=== PATIENT | male | born 1950 | race Hispanic/Latino ===

== ENCOUNTER 2017-02-21 23:59 | Emergency (ER) | payer MEDICAID, MEDICARE ==
[2017-02-22 00:08] VITALS: BMI 22.4
[2017-02-22 00:09] VITALS: TEMP 98.2
--- NOTE | 2017-02-22 00:52 | ED PDOC ---
Arrival/HPI - General Chief Complaint: Headache Time Seen by Provider: 02/22/17 00:17 Historian: Patient - History of Present Illness Narrative History of Present Illness (Text): 02/22/17 00:48 66 year old male presents to the emergency department complaining of right frontal headache that began this morning. Patient describes the headache as slow in onset, not sudden, not the worst headache of his life. He denies nausea , vomiting, photophobia, fever, chills, or neck pain. No other complaints. Patient states he has a history of depression and reports compliance with his medication. He denies suicidal ideation or homicidal ideation. Symptom Onset: Gradual Symptom Course: Unchanged Activities at Onset: Rest Past Medical History - Provider Review Nursing Documentation Reviewed: Yes - Infectious Disease Hx of Infectious Diseases: None - Cardiac Hx Cardiac Disorders: No Hx Hypertension: Yes - Pulmonary Hx Respiratory Disorders: No Hx Tuberculosis: No - Neurological Hx Neurological Disorder: No HX Cerebrovascular Accident: No Hx Seizures: No - HEENT Hx HEENT Disorder: Yes (tongue CA) - Renal Hx Renal Disorder: No Hx Dialysis: No Hx Kidney Stones: No Hx Neurogenic Bladder: No Hx Pyelonephritis: No Hx Renal Cancer: No Hx Renal Failure: No - Endocrine/Metabolic Hx Endocrine Disorders: No - Hematological/Oncological Hx Blood Disorders: No Hx Cancer: Yes - Integumentary Hx Dermatological Disorder: No - Musculoskeletal/Rheumatological Hx Musculoskeletal Disorders: No Hx Falls: No - Gastrointestinal Hx Gastritis: Yes - Genitourinary/Gynecological Hx Genitourinary Disorders: No Hx Sexually Transmitted Diseases: No - Psychiatric Hx Anxiety: Yes Hx Depression: Yes Hx Physical Abuse: No Hx Sexual Abuse: No Hx Substance Use: No - Surgical History Other/Comment: polypectomy - Anesthesia Hx Anesthesia: Yes Hx Anesthesia Reactions: No Hx Malignant Hyperthermia: No - Suicidal Assessment Feels Threatened In Home Enviroment: No Family/Social History - Physician Review Nursing Documentation Reviewed: Yes Family/Social History: Unknown Family HX Smoking Status: Never Smoked Hx Alcohol Use: No Hx Substance Use: No Allergies/Home Meds Allergies/Adverse Reactions: Allergies No Known Allergies Allergy (Verified 01/24/15 13:49) Home Medications: Home Meds Medication Instructions Recorded Confirmed Atorvastatin 20 mg PO HS 09/16/14 01/24/15 Topiramate 50 mg PO DAILY 09/16/14 01/24/15 Lexapro 01/24/15 01/24/15 Patient Own Med 01/24/15 01/24/15 Physical Exam - Physical Exam Narrative Physical Exam (Text): 02/22/17 00:50 - Review of Systems Constitutional: Normal. absent: Fatigue, Weight Change, Fevers, Chills Eyes: Normal absent: photophobia ENT: Normal Respiratory: Normal absent: SOB, Cough, Sputum Cardiovascular: Normal absent: Chest pain, Palpitations, Syncope Gastrointestinal: Normal absent: Abdominal pain, Diarrhea, Nausea, Vomiting Genitourinary: Normal. absent: Dysuria, Frequency, Hematuria Musculoskeletal: Normal. absent: Arthralgias, Back Pain, Neck Pain Skin: Normal Neurological: Headache absent: Focal Weakness Endocrine: Normal Hemo/Lymphatic: Normal Psychiatric: Normal absent: no suicidal ideation, no homicidal ideation - Physical exam Patient appears age appropriate, speaking full sentences without difficulty - Systems Exam Head: Present: Atraumatic, Normocephalic Pupils: Present: PERRL Extraocular Muscles: Present: EOMI Conjunctiva: Present: Normal Mouth: Present: Moist Mucous Membranes Neck: Present: Normal Range of Motion. No: MIDLINE TENDERNESS, Paraspinal Tenderness Respiratory/Chest: Present: Clear to Auscultation, Good Air Exchange. No: Respiratory Distress, Accessory Muscle Use, Tachypneic Cardiovascular: Present: Regular Rate and Rhythm, Normal S1, S2, Peripheral Pulses Present. No: Murmurs Abdomen: Present: Normal Bowel Sounds, No: Tenderness, Peritoneal Signs, Rebound, Guarding, Distention Back: Present: Normal Inspection. No: Midline Tenderness, Paraspinal Tenderness Upper Extremity: Present: Normal Inspection. No: Cyanosis, Edema Lower Extremity: Present: Normal Inspection. No: Edema Neurological: Present: GCS=15, Speech Normal, cranial nerves II through XII fully intact with no cerebellar abnormality, neuro-sensory fully intact. No focal neurological deficits. Skin: Present: Warm, Dry, Normal Color. No: Rashes Lymphatic: Present: OX3, NI, NC Psychiatric: Present: Alert, Oriented x 3, Normal Insight, Normal Concentration Vital Signs Reviewed: Yes Vital Signs Temp Pulse Resp BP Pulse Ox 02/22/17 00:09 98.2 F 83 18 148/92 H 98 Temperature: Afebrile Blood Pressure: Normal Pulse: Regular Respiratory Rate: Normal Appearance: Positive for: Well-Appearing, Non-Toxic, Comfortable Pain Distress: None Mental Status: Positive for: Alert and Oriented X 3 Medical Decision Making ED Course and Treatment: 02/22/17 00:52 Impression: 66 year old male complaining of headache. Physical exam unremarkable. Plan: --Toradol -- Reassess and disposition Progress Notes: Based on history in physical exam, no suspicion of SAH. Toradol ordered and will reevaluate. 02/22/17 02:32 on reeval, pt states his pain has greatly decreased ambulating with steady gait and no focal neurological deficits states he feels comfortable being dc'd home with outpatient f/u Pt states he understands to return to the ER right away for new or worsening symptoms or for inability to f/u with PMD or specialist as instructed. Patient states that he fully agrees with and understands discharge instructions. States that he agrees with the plan and disposition. Verbalized and repeated discharge instructions and plan. I have given the patient opportunity to ask any additional questions. - Medication Orders Current Medication Orders: Discontinued Medications Ketorolac Tromethamine (Toradol) 30 mg IM STAT STA Stop: 02/22/17 00:47 Last Admin: 02/22/17 00:54 Dose: 30 MG IM Administration Charges Document 02/22/17 00:54 RD (Rec: 02/22/17 00:54 RD [id number]) Injection Site MAR Injection Site Left Deltoid Charges for Administration # of IM Administrations 1 - Scribe Statement The provider has reviewed the documentation as recorded by the Scribe Soheila Tobias Provider Scribe Attestation: All medical record entries made by the Scribe were at my direction and personally dictated by me. I have reviewed the chart and agree that the record accurately reflects my personal performance of the history, physical exam, medical decision making, and the department course for this patient. I have also personally directed, reviewed, and agree with the discharge instructions and disposition. Disposition/Present on Arrival - Present on Arrival Any Indicators Present on Arrival: No History of DVT/PE: No History of Uncontrolled Diabetes: No Urinary Catheter: No History of Decub. Ulcer: No History Surgical Site Infection Following: None - Disposition Have Diagnosis and Disposition been Completed?: Yes Diagnosis: Headache Disposition: HOME/ ROUTINE Disposition Time: 02:46 Patient Plan: Discharge Condition: GOOD Discharge Instructions (ExitCare): General Headache (ED) Additional Instructions: PLEASE RETURN TO THE EMERGENCY DEPARTMENT FOR NEW OR WORSENING SYMPTOMS. RETURN RIGHT AWAY IF YOU CANNOT FOLLOW UP WITH YOUR PRIMARY CARE DOCTOR, CLINIC, OR SPECIALIST IN 1-2 DAYS. Prescriptions: Ibuprofen [Motrin] 600 mg PO Q8 PRN #12 tab PRN Reason: Pain, Moderate (4-7) Referrals: Sadiq Vargas MD [Staff Provider] - Follow up with primary Noble Vargas MD [Staff Provider] - Follow up with primary
[2017-02-22 03:19] VITALS: BP 135/86; PULSE 79; RESP 17; O2SAT 100
== END 2017-02-22 03:19 | disposition home or self-care (01) ==
LOC: ED 23:59
DX: R51 Headache (principal); I10 Essential (primary) hypertension
CPT/HCPCS: 96372; 99285; J1885

== ENCOUNTER 2018-03-19 11:31 | Inpatient (IN) | payer MEDICARE, MEDICAID ==
--- NOTE | 2018-03-19 11:51 | ED PDOC ---
Arrival/HPI - General Time Seen by Provider: 03/19/18 11:36 Historian: Patient - History of Present Illness Narrative History of Present Illness (Text): 03/19/18 11:48 67yo male with PMHx of Depression bib EMS for depression. Patient states while he was at [facility] mental health this morning, they noticed that he was agitated and depressed and he voiced that he wants to kill him. States he don't want to harm himself, but just that life is difficult for him right now. He denies homicidal ideation, hallucination, any somatic complaint. Past Medical History - Provider Review Nursing Documentation Reviewed: Yes - Infectious Disease Hx of Infectious Diseases: None - Cardiac Hx Cardiac Disorders: No Hx Hypertension: Yes - Pulmonary Hx Respiratory Disorders: No Hx Tuberculosis: No - Neurological Hx Neurological Disorder: No HX Cerebrovascular Accident: No Hx Seizures: No - HEENT Hx HEENT Disorder: Yes (tongue CA) - Renal Hx Renal Disorder: No Hx Dialysis: No Hx Kidney Stones: No Hx Neurogenic Bladder: No Hx Pyelonephritis: No Hx Renal Cancer: No Hx Renal Failure: No - Endocrine/Metabolic Hx Endocrine Disorders: No - Hematological/Oncological Hx Blood Disorders: No Hx Cancer: Yes - Integumentary Hx Dermatological Disorder: No - Musculoskeletal/Rheumatological Hx Musculoskeletal Disorders: No Hx Falls: No - Gastrointestinal Hx Gastritis: Yes - Genitourinary/Gynecological Hx Genitourinary Disorders: No Hx Sexually Transmitted Diseases: No - Psychiatric Hx Anxiety: Yes Hx Depression: Yes Hx Physical Abuse: No Hx Sexual Abuse: No Hx Substance Use: No - Surgical History Other/Comment: polypectomy - Anesthesia Hx Anesthesia: Yes Hx Anesthesia Reactions: No Hx Malignant Hyperthermia: No - Suicidal Assessment Feels Threatened In Home Enviroment: No Family/Social History - Physician Review Nursing Documentation Reviewed: Yes Family/Social History: Unknown Family HX Smoking Status: Never Smoked Hx Alcohol Use: No Hx Substance Use: No Allergies/Home Meds Allergies/Adverse Reactions: Allergies No Known Allergies Allergy (Verified 03/19/18 12:07) Home Medications: Home Meds Medication Instructions Recorded Confirmed Atorvastatin 20 mg PO HS 09/16/14 03/19/18 Risperidone [Risperdal] 2 mg PO DAILY 03/19/18 03/19/18 Review of Systems - Physician Review All systems were reviewed & negative as marked: Yes - Review of Systems Constitutional: Normal Eyes: Normal ENT: Normal Respiratory: Normal Cardiovascular: Normal Gastrointestinal: Normal Genitourinary Male: Normal Musculoskeletal: Normal Skin: Normal Neurological: Normal Endocrine: Normal Hemo/Lymphatic: Normal Psychiatric: Depression Physical Exam Vital Signs Reviewed: Yes Vital Signs Temp Pulse Resp BP Pulse Ox 03/19/18 15:54 18 98 03/19/18 15:51 98.6 F 87 18 118/78 99 03/19/18 12:12 99.1 F 88 18 116/75 96 Temperature: Afebrile Blood Pressure: Normal Pulse: Regular Respiratory Rate: Normal Appearance: Positive for: Well-Appearing, Non-Toxic, Comfortable Pain Distress: None Mental Status: Positive for: Alert and Oriented X 3 - Systems Exam Head: Present: Atraumatic, Normocephalic Pupils: Present: PERRL Extroacular Muscles: Present: EOMI Conjunctiva: Present: Normal Mouth: Present: Moist Mucous Membranes Neck: Present: Normal Range of Motion Respiratory/Chest: Present: Clear to Auscultation, Good Air Exchange. No: Respiratory Distress, Accessory Muscle Use Cardiovascular: Present: Regular Rate and Rhythm, Normal S1, S2. No: Murmurs Abdomen: No: Tenderness, Distention, Peritoneal Signs Back: Present: Normal Inspection Upper Extremity: Present: Normal Inspection. No: Cyanosis, Edema Lower Extremity: Present: Normal Inspection. No: Edema Neurological: Present: GCS=15, CN II-XII Intact, Speech Normal Skin: Present: Warm, Dry, Normal Color. No: Rashes Psychiatric: Present: Alert, Oriented x 3, Normal Insight, Normal Concentration , Depressed Mood Medical Decision Making ED Course and Treatment: 03/19/18 19:17 PT was seen in ED for stated history. He was medically cleared in ED and was seen in ED by PES screener Lauri. She DC with Dr. Davila and pt was admitted for Major depression under Dr. Davila's service. EKG Sinus rhythm with fusion comples. RBBB @ 92bpm. comparable to old EKG CXR NAD - Lab Interpretations Lab Results: 03/19/18 12:00 03/19/18 12:00 Lab Results 03/19/18 12:00: Alcohol, Quantitative < 10 03/19/18 12:00: Salicylates < 1 L, Acetaminophen < 10.0 L 03/19/18 12:00: Sodium 143, Potassium 3.7, Chloride 108 H, Carbon Dioxide 22, Anion Gap 16, BUN 21, Creatinine 1.3, Est GFR ( Amer) > 60, Est GFR (Non- Af Amer) 55, Random Glucose 118 H, Calcium 9.6, Total Bilirubin 0.7, AST 33, ALT 34, Alkaline Phosphatase 67, Total Protein 7.3, Albumin 4.4, Globulin 2.9, Albumin/Globulin Ratio 1.5 03/19/18 12:00: WBC 8.2 D, RBC 5.52, Hgb 16.7, Hct 47.4, MCV 85.9, MCH 30.3, MCHC 35.2, RDW 12.9, Plt Count 157, MPV 12.1 H, Gran % 81.1 H, Lymph % (Auto) 9.4 L, [place] % (Auto) 9.0 H, Eos % (Auto) 0.4 L, Baso % (Auto) 0.1, Gran # 6.61 H , Lymph # (Auto) 0.8 L, [place] # (Auto) 0.7 H, Eos # (Auto) 0.0, Baso # (Auto) 0.01 03/19/18 11:57: Urine Opiates Screen Negative, Urine Methadone Screen Negative, Ur Barbiturates Screen Negative, Ur Phencyclidine Scrn Negative, Ur Amphetamines Screen Negative, U Benzodiazepines Scrn Negative, U Oth Cocaine Metabols Negative, U Cannabinoids Screen Negative 03/19/18 11:57: Urine Color Yellow, Urine Appearance Clear, Urine pH 5.5, Ur Specific [place] >= 1.030, Urine Protein Negative, Urine Glucose (UA) Negative, Urine Ketones Trace H, Urine Blood Small H, Urine Nitrate Negative, Urine Bilirubin Negative, Urine Urobilinogen 0.2, Ur Leukocyte Esterase Negative, Urine RBC 5 - 10, Urine WBC 0 - 2, Ur Epithelial Cells None, Urine Bacteria Few , Urine Other Fiber - RAD Interpretation Radiology Orders: 03/19/18 11:56 CHEST PORTABLE [RAD] Stat - Medication Orders Current Medication Orders: Acetaminophen (Tylenol 325mg Tab) 650 mg PO Q6H PRN PRN Reason: Pain, moderate (4-7) Al Hydrox/Mg Hydrox/Simethicone (Maalox Plus 30 Ml) 30 ml PO DAILY PRN PRN Reason: Indigestion / Heartburn Hydroxyzine Pamoate (Vistaril) 25 mg PO TID PRN; Protocol PRN Reason: Anxiety Lorazepam (Ativan) 1 mg IM Q8 PRN; Protocol PRN Reason: Anxiety Magnesium Hydroxide (Milk Of Magnesia) 30 ml PO DAILY PRN PRN Reason: Constipation Mirtazapine (Remeron) 15 mg PO HS PRN PRN Reason: Insomnia Risperidone (Risperdal Tab) 1 mg PO AMHS JOVANY PRN Reason: Protocol Disposition/Present on Arrival - Present on Arrival Any Indicators Present on Arrival: No History of DVT/PE: No History of Uncontrolled Diabetes: No Urinary Catheter: No History Surgical Site Infection Following: None - Disposition Have Diagnosis and Disposition been Completed?: Yes Diagnosis: Moderate major depression, single episode, Major depression Disposition: HOSPITALIZED Disposition Time: 16:25 Patient Plan: Admission Patient Problems: Current Active Problems Problem Status Onset Major depression Acute Moderate major depression, single episode Acute Condition: FAIR
[2018-03-19 11:56] VITALS: BMI 22.1
[2018-03-19 12:07] LABS: PH,URINE 5.5 (4.7-8.0); URINE BILIRUBIN NEGATIVE (NEGATIVE); URINE BLOOD SMALL (NEGATIVE); URINE GLUCOSE (UA) NEGATIVE (NEGATIVE); URINE LEUKOCYTE ESTERASE NEGATIVE Leu/uL (NEGATIVE); URINE PROTEIN NEGATIVE mg/dL (<30 mg/dL); URINE UROBILINOGEN 0.2 E.U./dL (<1 E.U./dL)
[2018-03-19 12:12] LABS: URINE APPEARANCE CLEAR (CLEAR); URINE COLOR YELLOW (YELLOW)
[2018-03-19 12:18] LABS: BASO # 0.01 K/mm3 (0.0-2.0); BASO % 0.1 % (0.0-3.0); EOS % 0.4 % (1.5-5.0); GRAN # 6.61 (1.4-6.5); GRAN % 81.1 % (50.0-68.0); HEMOGLOBIN 16.7 g/dL (14.0-18.0); LYMPH # 0.8 (1.2-3.4); LYMPH % 9.4 % (22.0-35.0); MEAN CELL VOLUME 85.9 fl (80.0-105.0); MEAN CORPUSCULAR HEMOGLOBIN 30.3 pg (25.0-35.0); MEAN CORPUSCULAR HGB CONC 35.2 g/dl (31.0-37.0); MEAN PLATELET VOLUME 12.1 fl (7.0-11.0); MONO # 0.7 (0.1-0.6); RBC 5.52 10^6/uL (3.5-6.1); RED CELL DISTRIBUTION WIDTH 12.9 % (11.5-14.5); WHITE BLOOD COUNT 8.2 10^3/ul (4.5-11.0)
[2018-03-19 12:20] LABS: URINE BACTERIA FEW (NEG); URINE WBC 0 - 2 /hpf (0-6)
[2018-03-19 12:30] LABS: ALB/GLOB RATIO 1.5 (1.1-1.8); ALBUMIN 4.4 g/dL (3.0-4.8); ALT/SGPT 34 U/L (7-56); AST/SGOT 33 U/L (17-59); BLOOD UREA NITROGEN 21 mg/dL (7-21); CALCIUM 9.6 mg/dL (8.4-10.5); GFR AFRICAN-AMERICAN > 60; GFR NON-AFRICAN AMERICAN 55
[2018-03-19 12:31] LABS: ACETAMINOPHEN < 10.0 ug/ml (10.0-20.0); SALICYLATE < 1 mg/dL (2.0-20.0)
[2018-03-19 12:38] LABS: BARBITURATES, UR NEGATIVE (NEGATIVE); BENZODIAZEPINES, UR NEGATIVE (NEGATIVE); OPIATES, UR NEGATIVE (NEGATIVE); PHENCYCLIDINE, UR NEGATIVE (NEGATIVE)
--- NOTE | 2018-03-19 13:12 | RAD ---
HISTORY: admission COMPARISON: 03/01/2016. FINDINGS: LUNGS: The lungs are well inflated and clear. PLEURA: No significant pleural effusion identified, no pneumothorax apparent. CARDIOVASCULAR: Normal. OSSEOUS STRUCTURES: No significant abnormalities. VISUALIZED UPPER ABDOMEN: Normal. OTHER FINDINGS: None. IMPRESSION: No active pulmonary disease.
[2018-03-19] MEDS ORDERED: Magnesium Hydroxide Susp 30 ml UD PO PRN (17:03)
[2018-03-19] MEDS ORDERED: Alum-Mag Hydrox-Simethicone Susp (30 mL) PO PRN (17:03)
--- NOTE | 2018-03-19 21:11 | CARD ---
APPROVED REPORT EKG Measurement Heart [id number] <Conclusion> Sinus rhythm with fusion complexes Right bundle branch block Abnormal ECG
[2018-03-20 06:31] VITALS: O2SAT 100
--- NOTE | 2018-03-20 08:18 | PCM.BM ---
<Radha Howard - Last Filed: 03/20/18 08:15> Treatment Plan Problems - Problems identified on initial assessmt high risk:suicide Date Initiated: 03/20/18 Time Initiated: 08:16 Assessment reference: NA Status: Active hopelesness/helplessness Date Initiated: 03/20/18 Time Initiated: 08:17 Assessment reference: NA Status: Active feeling of worthlessness Date Initiated: 03/20/18 Time Initiated: 08:18 Status: Active ineffective coping Date Initiated: 03/20/18 Time Initiated: 08:19 Assessment reference: NA Status: Active social isolation Date Initiated: 03/20/18 Time Initiated: 08:22 Assessment reference: NA Status: Active Treatment assets and liabiliti Patient Assests: adapts well, cooperative, educated, ADL independent, negotiates basic needs Patient Liabilities: live alone, poor support system - Milieu Protocol Maintain good personal hygiene: every shift Encourage regular showers, every shift Remind patient to perform daily oral care, every shift Assist patient to perform ADL's Conduct patient checks and document Observation sheet: Q15 minutes Maintain personal safety: every shift Educate patient to report safety concerns to staff, every shift Monitor environment for contraband/sharps Medication safety: Monitor for expected outcome, potential side effects: every shift, Assess barriers to learning: every shift, Assess readiness for medication education: every shift Discharge/Continuing Care - Education Needs Education Needs: Patient Medication, Patient Diagnosis/Disease Process, Patient Coping Skills, Patient Community resources, Patient Personal Hygiene/Grooming - Discharge Discharge Criteria: Tolerates medication w/o severe side effects, Free of Suicidal thoughts, Free of Homicidal thoughts, Normal sleep pattern, Ability to care for self <Lola Mccarthy - Last Filed: 03/20/18 15:20> - Diagnosis (1) Schizoaffective disorder Status: Acute Interventions: 03/20/18 15:18 Psychoeducation supportive therapy Psychopharmacology/adjustment of medications as needed/ monitoring possible side effects Evaluate pt on daily basis Compliance with medications and follow up appointments Long acting medication if pt is noncompliant with pill form Suicide and homicide risk assessment and prevention, coping strategies, safety plan Relapse prevention Reduction of symptoms Improve functional status Possible assertive community treatment Cognitive behavioral therapy Family involvement Possible social skill training as outpatient (2) MT (generalized anxiety disorder) Status: Acute Interventions: 03/20/18 15:20 Psychoeducation Psychopharmacology/adjustment of medications as needed/ monitoring possible side effects Evaluate pt on daily basis Discussion of importance of being compliant with medications and follow up appointments Suicide and homicide risk assessment and prevention, coping strategies, safety plan Reduction of symptoms Relaxation techniques and breathing exercises Improve functional status Family involvement Cognitive behavioral therapy as outpatient <Zaina Sweeney Y - Last Filed: 03/20/18 17:51> Family Contact Family involvement: No known Family/SO
[2018-03-20 08:28] LABS: HDL CHOLESTEROL 44 mg/dL (29-60)
[2018-03-20 08:38] LABS: LDL CHOLESTEROL 117 mg/dL (0-129)
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
[2018-03-21 07:14] VITALS: RESP 20
--- NOTE | 2018-03-21 09:42 | PCM.PYCHPN ---
Psychiatric Progress Note - Psychiatric Progress Note Patient seen today, length of contact: 25 min Problems Identified/Issues Discussed: I reviewed assessment and recent notes. Patient was interviewed at bedside. Alert and oriented x3. He tells me that he feels improved and would like to be discharged soon. Sleeping well and denies side effects, discomfort or pain. Affect appears constricted, withdrawn and a little anxious. There have been no behavioral issues however patient has been guarded and withdrawn on the unit. Admitted to intermittent suicidal ideation with no plan to staff members yesterday though denied having these thoughts to me today. There were no behavioral issues overnight Diagnostic Results: r/o schizoaffective disorder Medication Change: No Medical Record Reviewed: Yes Mental Status Examination - Cognitive Function Orientation: Person, Place Attention: WNL Concentration: Poor - Mood Mood: Depressed (better), Anxious - Affect Affect: Constricted, Flat - Speech Speech: Appropriate - Formal Thought Process Formal Thought Process: Delusions (None elicited today), Paranoia (guarded) - Suicidal Ideation Suicidal Ideation: No - Homicidal Ideation Homicidal Ideation: No Goal/Treatment Plan - Goal/Treatment Plan Progress Toward Problem(s) and Goals/Treatment Plan: * c/w current tx and plan * No new weekend labs thus far * Vitals reviewed and noted below: 03/20/18 03/21/18 06:30 07:13 Temperature 97.9 F 97.9 F Pulse Rate 77 75 Respiratory 19 20 Rate Blood Pressure 141/92 H 124/82
--- NOTE | 2018-03-22 09:51 | PCM.PYCHPN ---
Psychiatric Progress Note - Psychiatric Progress Note Patient seen today, length of contact: 25 min Patient Chief Complaint: Feels neither hopeful or hopeless Problems Identified/Issues Discussed: I reviewed assessment and recent notes. Patient was interviewed at bedside. Alert and oriented x3. He tells me that he feels improved and would like to be discharged soon, willing to wait until Friday to speak with his primary psychiatrist. Patient feels that the medications are "helping a little". Patient feels neither hopeful or hopeless. His affect is constricted and withdrawn. Appears a little anxious today. Patient continues to deny having any thoughts to harm himself though admitted to intermittent suicidal ideation (with no plan) to staff members on Friday Sleeping well and denies side effects, discomfort or pain. There have been no behavioral issues over the weekend however patient has been guarded and quiet on the unit. Diagnostic Results: r/o schizoaffective disorder Medication Change: No Medical Record Reviewed: Yes Mental Status Examination - Cognitive Function Orientation: Person, Place, Situation Attention: WNL Concentration: Poor - Mood Mood: Depressed (better neither hopeful or hopeless), Anxious - Affect Affect: Constricted, Flat - Speech Speech: Appropriate - Formal Thought Process Formal Thought Process: Delusions (None elicited this weekend however patient is guarded), Paranoia (guarded) - Suicidal Ideation Suicidal Ideation: No - Homicidal Ideation Homicidal Ideation: No Goal/Treatment Plan - Goal/Treatment Plan Progress Toward Problem(s) and Goals/Treatment Plan: * c/w current tx and plan * No new weekend labs * Vitals reviewed and noted below: Selected Entries 03/22/18 07:47 Temperature 96.8 F L Pulse Rate 72 Respiratory 20 Rate Blood Pressure 119/79
--- NOTE | 2018-03-23 15:10 | PCM.PYCHPN ---
Psychiatric Progress Note - Psychiatric Progress Note Patient seen today, length of contact: 30 minutes Patient Chief Complaint: "I M anxious to go home, and the same time I'm afraid to lose my home health aide" Problems Identified/Issues Discussed: Suicide/ homicide prevention, past psychiatric h/o, current psychiatric symptoms , medical problems, risk/benefits and alternatives of medications, medications compliance, coping strategies, substance abuse h/o, relapse prevention, importance of follow up with psychiatrist and therapist, discharge plan. Medical Problems: patient reported being healthy Diagnostic Results: 03/19/18 12:00 03/19/18 12:00 Lab Results 03/20/18 08:00: RPR Nonreactive 03/20/18 08:00: Triglycerides 98, Cholesterol 204 H, LDL Cholesterol Direct 117 , HDL Cholesterol 44 03/19/18 12:00: Alcohol, Quantitative < 10 03/19/18 12:00: Salicylates < 1 L, Acetaminophen < 10.0 L 03/19/18 12:00: Sodium 143, Potassium 3.7, Chloride 108 H, Carbon Dioxide 22, Anion Gap 16, BUN 21, Creatinine 1.3, Est GFR ( Amer) > 60, Est GFR (Non- Af Amer) 55, Random Glucose 118 H, Calcium 9.6, Total Bilirubin 0.7, AST 33, ALT 34, Alkaline Phosphatase 67, Total Protein 7.3, Albumin 4.4, Globulin 2.9, Albumin/Globulin Ratio 1.5 03/19/18 12:00: WBC 8.2 D, RBC 5.52, Hgb 16.7, Hct 47.4, MCV 85.9, MCH 30.3, MCHC 35.2, RDW 12.9, Plt Count 157, MPV 12.1 H, Gran % 81.1 H, Lymph % (Auto) 9.4 L, [place] % (Auto) 9.0 H, Eos % (Auto) 0.4 L, Baso % (Auto) 0.1, Gran # 6.61 H , Lymph # (Auto) 0.8 L, [place] # (Auto) 0.7 H, Eos # (Auto) 0.0, Baso # (Auto) 0.01 03/19/18 11:57: Urine Opiates Screen Negative, Urine Methadone Screen Negative, Ur Barbiturates Screen Negative, Ur Phencyclidine Scrn Negative, Ur Amphetamines Screen Negative, U Benzodiazepines Scrn Negative, U Oth Cocaine Metabols Negative, U Cannabinoids Screen Negative 03/19/18 11:57: Urine Color Yellow, Urine Appearance Clear, Urine pH 5.5, Ur Specific [place] >= 1.030, Urine Protein Negative, Urine Glucose (UA) Negative, Urine Ketones Trace H, Urine Blood Small H, Urine Nitrate Negative, Urine Bilirubin Negative, Urine Urobilinogen 0.2, Ur Leukocyte Esterase Negative, Urine RBC 5 - 10, Urine WBC 0 - 2, Ur Epithelial Cells None, Urine Bacteria Few , Urine Other Fiber Vital Signs Temp Pulse Pulse Resp BP Pulse Ox 03/23/18 07:29 97.6 F 73 20 118/82 03/22/18 15:00 77 128/82 03/22/18 07:47 96.8 F L 72 20 119/79 03/21/18 07:13 97.9 F 75 20 124/82 03/20/18 06:30 97.9 F 77 19 141/92 H 100 03/19/18 18:16 89 18 03/19/18 15:54 18 98 03/19/18 15:51 98.6 F 87 18 118/78 99 03/19/18 12:12 99.1 F 88 18 116/75 96 DSM 5 Symptoms Update: Shortly patient is a 67 year old male, self reported history of depression and "schizophrenia tendencies", patient has more than 5 psychiatric admissions, most recent was about 2 years ago here at [facility] psychiatric inpatient unit under Dr. Nunez services, patient was referred by therapist at [facility] for evaluation of depressive symptoms, inabilities to function, paranoia, possible suicidal ideation with a plan to overdose on poison, patient lives alone, no family, no friends, lacks social support, patient failed outpatient setting, patient obviously is in danger to self, required further evaluation and stabilization in psychiatric inpatient unit. patient was seen and examined at the treatment team meeting room, history reviewed, discussed with staff, patient presented to have acceptable personal hygiene, looks older than his chronological age, appears to be restless and anxious, fair ADLs. patient appears to be anxious, patient is ambivalent about his discharge, patient reported to feel anxious to go back home because of his home health aid , at the same time patient wants to be discharged because he is afraid that she will be leaving him. patient presented with some psychomotor retardation, very anxious, monotonic voice, patient seems to be shy. over the weekend patient was low-profile, self isolative, visible in the unit, but not participating in unit activities. Patient is willing to increase her Risperdal as well as Lexapro. Patient tolerates medications well, no side effects observed or reported.aims 0 , no EPS. Impression: Rule out schizoaffective disorder. Medication Change: Yes (Risperdal increased, Lexapro increased) Medical Record Reviewed: Yes Consults ordered or reviewed: no medical consult was called, patient was seen by medical team and the emergency room Mental Status Examination - Cognitive Function Orientation: Person, Place, Situation Memory: Intact Attention: WNL Concentration: Poor - Mood Mood: Depressed (better neither hopeful or hopeless), Anxious - Affect Affect: Constricted, Flat - Speech Speech: Appropriate - Formal Thought Process Formal Thought Process: Paranoia (guarded) - Suicidal Ideation Suicidal Ideation: No - Homicidal Ideation Homicidal Ideation: No Goal/Treatment Plan - Goal/Treatment Plan Need for Continued Stay: Remain at risks for inpatient hospitalization, Severe depression anxiety, Discharge may exacerbated symptoms, Severe functional impairment Progress Toward Problem(s) and Goals/Treatment Plan: Milieu/structure/supportive therapy Medical consult appreciated, see medical team note for more detailed info SW consultation for discharge plan and social issues Med management Risperdal 1 mg at the morning time and 2 mg at the nighttime for psychosis Ativan for restlessness and akathisia as well as anxiety Lexapro 10 mg the morning time for depression and anxiety Remeron 15 mg at the nighttime for depression as well as insomnia Follow up on labs Will monitor closely Pt was educated about risk/benefits and alternatives of medications, coping strategies (safety plan, suicide prevention), relapse prevention, importance of follow up with psychiatrist and therapist, stay away from drugs/alcohol/smoking Estimated Date of D/C: 03/26/18
[2018-03-24 07:02] VITALS: BP 137/81; PULSE 80; TEMP 97.8
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
== END 2018-03-24 14:28 | disposition home or self-care (01) | DRG 885 ==
LOC: ED 11:31 → PSYC 15:29
PROVIDERS: ADMIT Psychiatry & Neurology Psychiatry; ATTEND Psychiatry & Neurology Psychiatry
DX: F25.9 Schizoaffective disorder, unspecified (principal); F32.1 Major depressive disorder, single episode, moderate; R45.851 Suicidal ideations; F41.1 Generalized anxiety disorder; G47.00 Insomnia, unspecified; I10 Essential (primary) hypertension; Z79.899 Other long term (current) drug therapy; Z85.810 Personal history of malignant neoplasm of tongue